=== PATIENT | male | born 1935 | race Caucasian/White ===

== ENCOUNTER 2016-08-23 23:50 | Inpatient (IN) | payer MEDICARE, OTHER ==
--- NOTE | ~2016-08-23 | HP ---
History And Physical [address] [place]. [address] NAME: TOMAS VASQUEZ : 37 STATUS : ADM IN [facility]#: [id number] AGE: 80 ADM/REG DATE : 08/24/16 MR#: [id number] REPORT SERV DATE: 08/24/16 DICTATED BY: BERNARDTOMAS MAXI DATE: 08/24/16 REPORT STATUS : Draft TRANSCRIBED BY: MODL DATE: 08/24/16 DATE OF ADMISSION: 08/23/2016 POINT OF ENTRY: [facility] Emergency Department. PRIMARY SURGEON: Omar Chandler M.D. CHIEF COMPLAINT: Nausea, vomiting, diarrhea, and abdominal distention. HISTORY OF PRESENT ILLNESS: Mr. Vasquez is a 80-year-old gentleman with a history of chronic right inguinal hernia as managed by Dr. Chandler as well as atrial fibrillation and DVT on Xarelto who presented to [facility] Emergency Department earlier on 08/23/2016 for a two- to three-day history of recurrent large volume emesis with associated diarrhea and abdominal bloating and distention. Initial evaluation at [facility] Emergency Department is notable for a CT scan of the abdomen and pelvis that showed right middle lobe and right lower lobe patchy infiltrate concerning for pneumonia as well as air and fluid distended small bowel with a transition point in the large hernia sac concerning for partial incarcerated hernia as well as a partial small bowel obstruction. The patient was transferred to our emergency department for evaluation by General Surgery. When they saw him, they were able to easily reduce the right inguinal hernia; therefore, it was recommended he be admitted to the Hospitalist Service for evaluation of his other medical issues. The patient reports a two- to three-day history of nausea, vomiting, abdominal bloating and distention at [facility] as well as a one-day history of profuse watery diarrhea. He actually denies any abdominal pain. Denies any recent fevers, night sweats, chills, chest pain, or shortness of breath. He does report some dry cough recently. REVIEW OF SYSTEMS: Comprehensive review of systems otherwise negative unless listed in history of present illness. PREVIOUS MEDICAL HISTORY: 1. Chronic right inguinal hernia, managed by Dr. Chandler. 2. Hypertension. 3. Hyperlipidemia. 4. History of DVT. 5. Atrial fibrillation, on Xarelto. 6. Parkinson disease. 7. Recent admission for urinary tract infection and sepsis. 8. Remote history of cauda equina syndrome, status post surgical correction. 9. BPH. 10.History of recurrent pleural effusions, requiring chest tube placement. PAST SURGICAL HISTORY: History And Physical [address] [address] NAME: TOMAS VASQUEZ : 37 STATUS : ADM IN [facility]#: [id number] AGE: 80 ADM/REG DATE : 08/24/16 MR#: [id number] REPORT SERV DATE: 08/24/16 DICTATED BY: TOMAS WAGNER DATE: 08/24/16 REPORT STATUS : Draft TRANSCRIBED BY: MODJanell DATE: 08/24/16 1. Right total knee. 2. Back surgery. 3. Umbical hernia repair. 4. Skin cancer resection. ALLERGIES: MORPHINE AND PRADAXA. HOME MEDICATIONS: 1. Tylenol 600 mg q.4 hours p.r.n. 2. DuoNebs one nebulization q.6 hours. 3. Proventil two puff inhalation q.4 hours p.r.n. 4. Artificial Tears daily each eye. 5. Vitamin C 1000 mg b.i.d. 6. Baclofen 10 mg q.h.s. 7. Stalevo one tablet five times daily. 8. Vitamin D3 2000 units q.h.s. 9. Celexa 20 mg daily. 10.Vitamin B12 2500 mcg q.h.s. 11.Colace 100 mg b.i.d. 12.Proscar 5 mg q.h.s. 13.Melatonin 3 mg q.h.s. 14.Remeron 7.5 mg q.h.s. 15.Protonix 40 mg daily. 16.Pindolol 10 mg b.i.d. 17.MiraLAX one packet daily. 18.Potassium chloride 20 mEq b.i.d. 19.Xarelto 20 mg daily. 20.Requip 3 mg t.i.d. 21.Simvastatin 20 mg q.h.s. 22.Flomax 0.4 mg q.h.s. 23.Zinc Sulfate 220 mg daily. SOCIAL HISTORY: Denies tobacco, alcohol, or illicits. He is currently living at [facility]. FAMILY MEDICAL HISTORY: Remarkable for coronary artery disease in his parents. LABS AND IMAGIN. White count is 9.9, hemoglobin is 12.4, hematocrit is 38.9, and platelet count is 195. 2. Sodium is 140, potassium 4.0, chloride 106, carbon dioxide 27, BUN 32, creatinine 0.99, glucose is 101, calcium is 9.3, protein 7.0, albumin is 3.0, bilirubin is 1.6, ALT is 6, AST is 11, and alkaline phosphatase is 75. 3. Lactic acid is 1.4. 4. Lipase is 56. 5. C. diff is negative. 6. CT scan of the abdomen and pelvis shows right middle lobe and right lower lobe patchy infiltrate concerning for pneumonia as well as air and fluid distended small bowel with History And Physical [address] [address] NAME: TOMAS VASQUEZ : 37 STATUS : ADM IN [facility]#: [id number] AGE: 80 ADM/REG DATE : 08/24/16 MR#: [id number] REPORT SERV DATE: 08/24/16 DICTATED BY: TOMAS WAGNER DATE: 08/24/16 REPORT STATUS : Draft TRANSCRIBED BY: MODJanell DATE: 08/24/16 a transition point within the large hernia sac concerning for partially incarcerated right inguinal hernia as well as partial small bowel obstruction. PHYSICAL EXAMINATION: VITAL SIGNS: Temperature is 97.3 degrees Fahrenheit, pulse is 96, respirations 18, saturating 93% on room air, and blood pressure is 112/64. GENERAL: The patient is awake, alert, in no acute distress, and resting comfortably in bed. He is a chronically ill-appearing, elderly male. HEENT: Atraumatic and normocephalic. Dry mucous membranes with evidence of thrush in his oropharyngeal tissues. Pupils are equal, round, reactive to light and accommodation. Extraocular eye movements are intact. No scleral icterus. NECK: No jugular venous distention. No carotid bruits. CARDIAC: Regular rate and rhythm. No murmurs or gallops. Normal S1 and S2. LUNGS: Does have some right lower lobe inspiratory rhonchi and crackles. ABDOMEN: Soft, nontender, and nondistended with hypoactive bowel sounds throughout. No rebound, guarding, or rigidity. EXTREMITIES: Warm and well perfused. No cyanosis, clubbing, or edema. SKIN: Warm and dry. PSYCH: Affect appropriate. NEURO: Alert and oriented times to person only. Cranial nerves II through XII are grossly intact. Speech is normal. Gait not assessed. ASSESSMENT AND PLAN: Mr. Vasquez is a 80-year-old gentleman who presents with nausea, vomiting, diarrhea, abdominal bloating and distention, found to have evidence of partial small bowel obstruction with concern for a partially incarcerated right inguinal hernia who is now status post reduction of inguinal hernia by Surgery, now being admitted for evidence of dehydration as well as a right-sided pneumonia. PROBLEM LIST: 1. Right middle lobe and right lower lobe pneumonia. 2. Dehydration. 3. Partial small bowel obstruction. 4. Partially incarcerated right inguinal hernia, status post reduction. 5. Thrush. PLAN: 1. Right-sided pneumonia. We will place the patient on Zosyn given recent hospitalization as well as residence in a nursing facility. We will follow up blood cultures, try to obtain sputum cultures as well as urinary antigens. Follow up repeat chest x-ray. 2. Partial small bowel obstruction. Nothing by mouth. Surgical consultation for management. 3. Partially incarcerated right inguinal hernia, status post reduction by surgery per Surgery. 4. Dehydration. IV fluids. 5. Thrush. Nystatin swish and swallow. 6. DVT prophylaxis. The patient is already on Xarelto. 7. Code status. The patient wished to be DNR, this is confirmed with at bedside. History And Physical [address] [address] NAME: TOMAS VASQUEZ : 37 STATUS : ADM IN [facility]#: [id number] AGE: 80 ADM/REG DATE : 08/24/16 MR#: [id number] REPORT SERV DATE: 08/24/16 DICTATED BY: TOMAS WAGNER DATE: 08/24/16 REPORT STATUS : Draft TRANSCRIBED BY: KRIS DATE: 08/24/16 GINA/KRIS Tomas Wagner MD / [id number] CC: Daphne Rand M.D.
--- NOTE | ~2016-08-23 | EHP ---
ER History and Physical [address] [address] NAME: TOMAS VASQUEZ : 37 STATUS : ADM IN [facility]#: [id number] AGE: 80 ADM/REG DATE : 08/24/16 MR#: [id number] REPORT SERV DATE: 08/24/16 DICTATED BY: FELY SWEENEY DATE: 08/24/16 REPORT STATUS : Draft TRANSCRIBED BY: MODL DATE: 08/24/16 ADDENDUM: This note is to explain the delay in the emergency room physician seeing the patient. Mr. Vasquez was sent from [facility] Emergency Room with my understanding that Dr. Go or one of his associates would be coming to the emergency room to receive the patient as he was being sent over for an incarcerated hernia, so Mr. Vasquez was placed into a room as we awaited the surgical residents arrival. After the surgery resident saw the patient, he brought me the chart and said he was done with the patient and that they were not going to need to be admitted by Surgery. I asked that he speak with Dr. Go because my understanding was that the patient would then be discharge by surgery, but when I spoke with Dr. Go, Dr. Go did not get the same impression in regard to the patient. He thought he was consulting on the patient here in the emergency room per our conversation and that we would decide final disposition. So, after the patient had been in the emergency department for a couple of hours. I did go and see Mr. Vasquez, he was in a stable condition. You can look at the chart for his history. He was admitted to the hospitalist for partial small bowel obstruction and pneumonia by CAT scan. CMR/MODL Fely Sweeney M.D. / [id number] CC: Ashwin Carver M.D.
--- NOTE | ~2016-08-23 | CN ---
Consultation Report [facility] [address] [place]. [address] NAME: TOMAS VASQUEZ : 37 STATUS : ADM IN PAT#: [id number] AGE: 80 ADM/REG DATE : 08/24/16 MR#: [id number] REPORT SERV DATE: 08/29/16 DICTATED BY: LUIS ARMANDO ROBERSON DATE: 08/29/16 REPORT STATUS : Draft TRANSCRIBED BY: MODJanell DATE: 08/29/16 CONSULTATION DATE OF CONSULTATION: 08/29/2016 REFERRING PHYSICIAN: Romaine Lozano M.D. HISTORY: Mr. Vasquez is a 80-year-old white male, who is well known to me. He has been hospitalized here at [facility], with primarily secondary to fever and encephalopathy associated with pneumonia. I am asked to see him for advice on how to help with bladder management. He has a long history of irritative and obstructive type of voiding complaints. He has been managed chronically on finasteride as well as Flomax and up until somewhat recently he had been in the past. He has also been on various types of anti-spasm bladder agents including Myrbetriq. He had a fall on 2015, with resultant rib fractures, and a pleural effusion requiring thoracoscopy. Since that time, he has mostly been in some sort of rehab setting. He has had urinary retention since then as well which has been managed for the most part with a Camarillo catheter. Apparently, the Cmaarillo was removed either before he arrived here or since his admission. He has voided some, but according to the nurses his residuals have measured anywhere from 250 to a 1000 mL. I instructed the nurses to reinsert a Camarillo catheter this morning which has been done successfully. He has no complaints at this point. Again, since his admission here he has been diagnosed with pneumonia. It has been treated appropriately with antibiotics and at this time, he is on Zosyn. His mental status changes have essentially resolved and at this point, he is afebrile. His medical team is planning for hospital discharge soon. PAST MEDICAL HISTORY: Atrial fibrillation, hypertension, Parkinson's disease, cauda equina syndrome, with history of skin cancers, and DVT. PAST SURGICAL HISTORY: Right knee replacement, back surgery, umbilical hernia surgery, recent thoracentesis, and thoracoscopy. SOCIAL HISTORY: He is . He has not smoked since the . He does not drink. He is retired. His is his caregiver. MEDICATIONS: medications at this time include tamsulosin and finasteride. ALLERGIES: PRADAXA AND MORPHINE. PHYSICAL EXAMINATION: GENERAL: He is a very pleasant, white male, who is in no distress at this time. He is alert, oriented, and conversive. VITAL SIGNS: He is afebrile. His vital signs are stable. HEENT: Pupils are equal, round, and reactive. Extraocular movements intact. NECK: Supple. No adenopathy. Consultation Report [facility] [address] [place]. [address] NAME: TOMAS VASQUEZ : 37 STATUS : ADM IN [facility]#: [id number] AGE: 80 ADM/REG DATE : 08/24/16 MR#: [id number] REPORT SERV DATE: 08/29/16 DICTATED BY: LUIS ARMANDO ROBERSON DATE: 08/29/16 REPORT STATUS : Draft TRANSCRIBED BY: KRIS DATE: 08/29/16 LUNGS: Clear. ABDOMEN: Soft, nondistended, and nontender. It is obese. GENITOURINARY: His bladder is not palpable. His penis is without lesion. There was some mild ventral meatal erosion. There is a Camarillo catheter in place draining grossly clear urine. Testes are descended bilaterally and are slightly atrophic. He has a moderate-to- large right inguinal hernia which is easily reducible. Prostate gland was not examined. EXTREMITIES: No cyanosis. NEURO: He has a repetitive tic like movements. LABORATORY DATA: Creatinine 0.6, white cell count 3.8. Blood cultures are negative. The urine culture from 08/24/2016 grew out 75,[address] of the abdomen and pelvis upon admission showed a normal tract. IMPRESSION: 1. Urinary retention, now with Camarillo catheter. 2. Long-standing voiding dysfunction with some neurogenic component. 3. History of significant irritative voiding symptoms, although, not on any current medication for this. 4. Parkinson's disease. 5. Resolving pneumonia. 6. Benign prostatic hyperplasia, chronically on tamsulosin and finasteride. 7. Reducible right inguinal hernia. 8. History of urinary tract infections. 9. Status post fall with injuries and subsequent debility on 05/2016-still recovering. RECOMMENDATIONS: For now I would simply leave his Camarillo catheter in place. Continue him on Flomax and Proscar. Hopefully, he will be deemed suitable for a voiding trial. At some point in the near term assuming he continues to recover clinically, and feeling stronger, and more mobile etc. I will certainly plan to follow up with him as an outpatient in the office and will discuss all the above with his . It would be okay from my standpoint to discharged him home with a Camarillo catheter whenever you are ready. Thank you for the consult. RAFAELA/KRIS Luis Armando Roberson M.D. / [id number] CC: Romaine Lozano M.D. Consultation Report [address] [place]. [address] NAME: TOMAS VASQUEZ : 37 STATUS : ADM IN PAT#: [id number] AGE: 80 ADM/REG DATE : 08/24/16 MR#: [id number] REPORT SERV DATE: 08/29/16 DICTATED BY: LUIS ARMANDO ROBERSON DATE: 08/29/16 REPORT STATUS : Draft TRANSCRIBED BY: KRIS DATE: 08/29/16 Ashwin Carver M.D.
--- NOTE | ~2016-08-23 | CN ---
Consultation Report [facility] [address] [place]. [address] NAME: TOMAS DOE : 37 STATUS : ADM IN PAT#: [id number] AGE: 80 ADM/REG DATE : 08/24/16 MR#: [id number] REPORT SERV DATE: 08/24/16 DICTATED BY: TIM GO DATE: 08/24/16 REPORT STATUS : Draft TRANSCRIBED BY: MODL DATE: 08/24/16 GENERAL SURGERY CONSULTATION AND H AND P DATE OF CONSULTATION: 08/24/2016 CHIEF COMPLAINT: Nausea, vomiting, diarrhea. HPI: A 80-year-old male, well-known to the [facility] surgeons for chronic reducible right inguinal hernia. The patient now presents with a two-day history of nausea and vomiting in one-day history of diarrhea. No bright red blood per rectum. No melena. No blood or coffee ground emesis. The patient denies any fever, chills, shortness of breath, or chest pain. The patient is somewhat altered though and he is sundowning. So, history was taken from the chart and from his . The patient had just recently finished an antibiotic course of Zosyn through a PICC line on the 08/21/2016 for his sepsis in GI. REVIEW OF SYSTEMS: A 12-systems were reviewed and negative except as mentioned in the HPI. ALLERGIES: PRADAXA, MORPHINE. PAST MEDICAL HISTORY: AFib, hypertension, Parkinson disease, enlarged prostate. He has cauda equina with previous L5-S1 fusion surgery; chronic right inguinal hernia, easily reducible; history of skin cancers, removed; DVT prior to fractures and right knee replacement. PAST SURGICAL HISTORY: Right knee replacement, back surgery for cauda equina syndrome 10 years ago, several skin cancers removed, umbilical hernia surgery, thoracentesis, right thoracoscopy with complete decortication, and talc pleurodesis. SOCIAL HISTORY: Previous smoker, quit in 1979, a [id number]. No alcohol. Retired. Lives in in [place], [place] with his . FAMILY HISTORY: Coronary artery disease, diabetes, hypertension. MEDICATIONS: Acetaminophen, DuoNeb, Proventil or albuterol, Artificial Tears, vitamins C, baclofen, carbidopa, L-dopa, entacapone also known as Stalevo, vitamin D3, Celexa, B12, Colace, finasteride, melatonin, Remeron, Protonix, pindolol, Zosyn, MiraLAX, potassium, Xarelto, Requip, Zocor, Flomax, zinc. PHYSICAL EXAMINATION: VITAL SIGNS: Blood pressure 112/64, pulse is 96, temperature 97.3, respiratory rate 18, and sats 90% on 2 L nasal cannula. GENERAL: This is a well-developed, well-nourished, in no acute distress white male, who does appears sickly at this time. Consultation Report [facility] [address] [place]. [address] NAME: TOMAS DOE : 37 STATUS : ADM IN [facility]#: [id number] AGE: 80 ADM/REG DATE : 08/24/16 MR#: [id number] REPORT SERV DATE: 08/24/16 DICTATED BY: TIM GO DATE: 08/24/16 REPORT STATUS : Draft TRANSCRIBED BY: MODJanell DATE: 08/24/16 HEENT: Normocephalic, atraumatic. PERRL. EOMI. Mucous membranes moist, but there was appearance of thrush on the inner right-sided buccal mucosa as well as on the tongue, thrush like pattern. Sclerae nonicteric. NECK: No lymphadenopathy. Trachea midline. CARDIOVASCULAR: Regular rate and rhythm. LUNGS: Clear auscultation bilaterally. ABDOMEN: Soft, nondistended, nontender. Bowel sounds present in general, right inguinal hernia was easily reducible, almost spontaneously reduced once the patient was placed in steep Trendelenburg. MUSCULOSKELETAL: Movies all extremities well. There is some restricted motion of his hands secondary to his Parkinson disease. EXTREMITIES: No clubbing, cyanosis, or edema, 2+ pulses. NEURO: Cranial nerves 2 through 12 are intact. AAO x1. The patient is sundowning it seems. LABS: White blood cell 9.9, hematocrit 38.9, platelets 195. Sodium 140, potassium 4.0, chloride 106, bicarb 27, BUN 32, creatinine 0.9, glucose 101, calcium 9.3, albumin 2.0. AST 6, ALT 11, alk phos 75, T bili 1.6, lipase 56. Also, CT scan showed dilated small bowel in the right inguinal hernia and a right lower lung pneumonia. ASSESSMENT AND PLAN: This is a 80-year-old male, who has a chronic easily reducible right inguinal hernia. 1. His hernia is very unlikely to be the cause of small bowel obstruction as it is easily reduces and soft in nature and is longstanding for approximately 7+ years and has been followed by Dr. Chandler in his office for last three years. 2. Recommend the patient to be admitted to the hospitalist for further workup. We did note for this acute onset of nausea, vomiting, and diarrhea. DICTATED BY: MD SIMONE Brown/KRIS Tim Go MD / [id number] CC: Ashwin Carver M.D.
--- NOTE | ~2016-08-23 | DS ---
Discharge Summary [facility] [address] [place]. [address] NAME: TOMAS DOE : 36 STATUS : DIS IN PAT#: [id number] AGE: 80 ADM/REG DATE : 08/24/16 MR#: [id number] REPORT SERV DATE: 08/31/16 DICTATED BY: PRINCE HIDALGO DATE: 08/30/16 REPORT STATUS : Draft TRANSCRIBED BY: MODL DATE: 08/30/16 ADMISSION DATE: 08/24/2016 DISCHARGE DATE: 08/30/2016 CONSULTING PHYSICIAN: Outpatient surgeon, Dr. Chandler. HISTORY OF PRESENT ILLNESS: This is a 80-year-old male who is going to be discharged with a final diagnoses of: 1. Right sided pneumonia. 2. Chronic right inguinal hernia. 3. Status post encephalopathy with history of dementia. 4. Pancytopenia, improved. 5. Atrial fibrillation. 6. History of deep venous thrombosis. 7. Hypertension. 8. Low folate. 9. Urinary retention. 10.Parkinson's. 11.Benign prostatic hypertrophy. 12.Thrush. DIAGNOSTIC EXAM: CAT scan of the abdomen and pelvis showing patchy infiltrates, right middle and right lower lobe suspicious for right-sided acute pneumonia; subsegmental atelectasis posterior left lung base; air fluid distended small bowel to the level of the large hernia sac, right lower quadrant where there is a transition zone suggesting partial incarceration of small bowel within the right hernia sac producing a low-grade partial small bowel obstruction with small bowel dilated up to 4.4 cm in diameter up to the margin of the hernia sac; scattered air-fluid levels throughout the dilated small bowel; scattered benign cyst within the liver; stable postsurgical changes from fusion L5-S1 beam-hardening artifact, lower chest, upper abdomen from the patient scan over the lower chest and upper abdomen. Chest x-ray, cardiomegaly with developing small right greater than left pleural effusion and bibasilar atelectasis or consolidation. Swallowing study, no witnessed laryngeal penetration or tracheal aspiration, mild pooling to the vallecula prior to swallow, mild oral residue with cracker consistency. Repeat chest x-ray showing increasing atelectasis or infiltrate in the right upper and lower lobes, small bilateral effusion. Abdominal x-ray, continued numerous gas-filled loops of large and small intestine. There is mild decrease in the amount of gas compared to the chief business officer view from CT of 08/23/2016. HOSPITAL COURSE: Please refer to the H and P done by Dr. Prater dated on 08/24/2016. Briefly, this is a 80-year-old male with a history of chronic right inguinal hernia, being followed conservatively by Dr. Chandler for several years now, atrial fibrillation, deep venous thrombosis, on Xarelto, comes in with a two- to three-day history of vomiting, diarrhea, abdominal bloating, and distention. The patient went to [facility]. CAT scan was done, which shows the above findings. The patient was then transferred here for evaluation of General Surgery. The patient was seen by surgeon and believed that the hernia is easily reducible and unlikely to cause the small-bowel obstruction. The patient was then referred Discharge [address] [address] NAME: TOMAS DOE : 36 STATUS : DIS IN PAT#: [id number] AGE: 80 ADM/REG DATE : 08/24/16 MR#: [id number] REPORT SERV DATE: 08/31/16 DICTATED BY: PRINCE HIDALGO DATE: 08/30/16 REPORT STATUS : Draft TRANSCRIBED BY: KRIS DATE: 08/30/16 to the hospitalist for admission. The patient is admitted by Dr. Prater and was treated for the right-sided pneumonia. Unfortunately, we were not able to get any organisms back, but the patient clinically improved. While he was here though, the patient's Camarillo was discontinued and the patient started retaining urine again with doctor, Dr. Montero, who recommended Camarillo placement and to leave it in until he follows up the patient on an outpatient basis. The patient initially has right-sided lower abdominal pain which improved day by day and the repeat abdominal x-ray shows improvement. The patient is able to eat without nausea and vomiting. We did a swallow study and it shows that the patient can tolerate eating. Meanwhile, his pneumonia improved. He is saturating at 92% on discharge with decreased cough. He was also found to have some pancytopenia which also improved as the patient clinically improved. The encephalopathy improved as well. He was found to have a low folate which we started some folic acid. Presently, the patient is ready for discharge. The is eager to send the patient back to the rehab facility, so he can start moving better. This was explained at length to the . The patient will be on the following medications. Eliquis 5 mg twice a day, artificial tears as needed, Dulcolax 10 mg per rectum daily, Colace 100 mg twice a day, Stalevo 200 mg five times a day, vitamin D 2000 units a day, Proscar 5 mg at bedtime, melatonin 3 mg as needed, Remeron 7.5 mg at bedtime, Celexa 20 mg a day, Protonix 40 mg at breakfast, pindolol 10 mg twice a day, Requip 3 mg three times a day, Zocor 20 mg at bedtime, Flomax 0.4 mg at bedtime, vitamin C 1000 mg twice a day, MiraLAX as needed, vitamin B12 of 2500 mcg sublingual at bedtime, Proventil, ipratropium every six hours, Tylenol p.r.n., and he will be on Augmentin 825 mg b.i.d. for three more days. The patient will follow up with the SNF doctor, then follow up with Dr. Carver after rehab discharge. Followup with Dr. Montero in two to four weeks and Dr. Chandler as scheduled. This has been explained to the patient at length. TIME SPENT: 35 minutes. BORA/KRIS Prince Hidalgo M.D. / [id number] CC: Daphne Wolf M.D.
[~2016-08-23 23:50] MED LIST: ACET500CAP PO; ASAB PO; CELEXA20 PO; COMTAN PO; CONSTULOSE PO; COUMADIN7.5 MG PO; COZAAR100 MG PO; DSS PO; DUONEB INH; FLEX PO; FLEXERIL5 MG PO; FLOMAX4 PO; HALF81 PO; HEMOCYTET PO; KDUR20 PO; LEVAQUIN750 MG PO; LIOR10 PO; MAX D3; MELA3 PO; MELATONIN5 M1 PO; MIRALAX POWDER1 PKT PO; NEXIUM40 PO; PARCOPA PO; PROAIR HFA INH; PROSCAR5 PO; PROTONIX PO; PROVHFA INH; REM15 PO; REQUIP3 PO; REQUIP4 MG PO; SIN25 PO; SIN25-250 PO; STALEVO 200 PO; STALEVO PO; SYSTANE OP; SYSTANE ULTR OPH; T PO; TEARS PURE OPH; ULTRAM50 PO; V2 PO; V5 PO; VISKEN10 PO; VITAMIN B-122500 MCG SL; VITAMIN D1000 UNI1 PO; VITAMIN D2000 UNIT PO; VITAMIN D31000 UNIT PO; VITC500 PO; XARELTO20 MG PO; ZINC220C PO; ZOCOR20 PO; ZOFRAN ODT4 MG PO; ZOSYN375 IV; [UNRECOGNIZED DRUG - CODE] OR; [UNRECOGNIZED DRUG - OTHER]
[2016-08-24 04:29] LABS: ASCORBIC ACID (UR NOT ORDER) NEG (NEG); BILIRUBIN, URINE NEGATIVE (NEG); ER URINALYSIS TAT 0 Hrs 00 Mins; KETONE, URINE 20 MG/DL (NEG); LEUKOCYTE ESTERASE(NOT OR MOD (NEG); NITRITE (URINE) NEG (NEG); WBC (NOT ORDERED) (RFLEX) 170 (0-5)
[2016-08-25 07:15] LABS: CALCIUM, SERUM 8.4 MG/DL (8.5-10.4); CHLORIDE, SERUM 108 MMOL/L (96-112); CO2 (CARBON DIOXIDE) 26 MMOL/L (24-34); CREATININE 0.71 MG/DL (0.70-1.30); GFR AFRICAN AMERICAN 103 ML/MIN (>=60); GFR NON AFRICAN AMERICAN 89 ML/MIN (>=60); GLUCOSE, SERUM 100 MG/DL (60-99); SODIUM, SERUM 143 MMOL/L (135-148)
[2016-08-25 07:20] LABS: BUN (BLOOD UREA NITROGEN) 23 MG/DL (6-23); POTASSIUM, SERUM 3.1 MMOL/L (3.5-5.3)
[2016-08-25 07:44] LABS: BASOPHILS 0.2 %; BASOPHILS ABSOLUTE 0.01 10/3/uL (0.0-0.16); EOSINOPHILS 1.3 %; EOSINOPHILS ABSOLUTE 0.08 10/3/uL (0.0-0.53); HEMOGLOBIN 10.1 g/dL (13.6-17.8); IMMATURE GRANULOCYTES 0.2 %; IMMATURE GRANULOCYTES ABSOLUTE 0.01 10/3/uL (0.0-0.11); LYMPHOCYTES 14.1 %; LYMPHOCYTES ABSOLUTE 0.87 10/3/uL (0.67-4.30); MEAN CORPUS HGB CONC 31.6 g/dL (32.0-36.0); MEAN CORPUSCULAR HEMOGLOB 28.9 pg (26.0-34.0); MEAN CORPUSCULAR VOLUME 91.7 fL (80-100); MEAN PLATELET VOLUME 10.2 fL (9.2-13.0); MONOCYTES 5.5 %; MONOCYTES ABSOLUTE 0.34 10/3/uL (0.21-1.20); NEUTROPHILS 78.7 %; NEUTROPHILS ABSOLUTE 4.86 10/3/uL (2.02-8.40); RBC DISTRIBUTION WIDTH 18.2 % (12.0-16.0); RED CELL COUNT 3.49 10/6/uL (4.7-6.1); WHITE BLOOD CELLS 6.2 10/3/uL (4.5-10.5)
[2016-08-25 07:45] LABS: PLATELET COUNT 123 10/3/uL (150-400)
[2016-08-25 07:46] LABS: MANUAL DIFF NO %
[2016-08-26 07:07] LABS: INTERNATIONAL NORMAL RATI 2.1 UNITS (-); PROTIME (NOT ORD) 23.3 SEC (12.0-14.5)
[2016-08-26 07:09] LABS: BASOPHILS 0 %; BUN (BLOOD UREA NITROGEN) 14 MG/DL (6-23); CALCIUM, SERUM 8.7 MG/DL (8.5-10.4); CHLORIDE, SERUM 107 MMOL/L (96-112); CO2 (CARBON DIOXIDE) 26 MMOL/L (24-34); CREATININE 0.61 MG/DL (0.70-1.30); EOSINOPHILS 5.8 %; GFR AFRICAN AMERICAN 110 ML/MIN (>=60); GFR NON AFRICAN AMERICAN 95 ML/MIN (>=60); GLUCOSE, SERUM 96 MG/DL (60-99); HEMATOCRIT 30.9 % (40.0-51.0); IMMATURE GRANULOCYTES 0.3 %; IMMATURE GRANULOCYTES ABSOLUTE 0.01 10/3/uL (0.0-0.11); LYMPHOCYTES ABSOLUTE 0.96 10/3/uL (0.67-4.30); MEAN CORPUS HGB CONC 32.4 g/dL (32.0-36.0); MEAN CORPUSCULAR HEMOGLOB 29.2 pg (26.0-34.0); MEAN CORPUSCULAR VOLUME 90.4 fL (80-100); MEAN PLATELET VOLUME 10.1 fL (9.2-13.0); MONOCYTES 8.7 %; NEUTROPHILS 57.2 %; NEUTROPHILS ABSOLUTE 1.96 10/3/uL (2.02-8.40); PLATELET COUNT 105 10/3/uL (150-400); POTASSIUM, SERUM 3.3 MMOL/L (3.5-5.3); RBC DISTRIBUTION WIDTH 17.6 % (12.0-16.0); RED CELL COUNT 3.42 10/6/uL (4.7-6.1); SODIUM, SERUM 143 MMOL/L (135-148)
[2016-08-26 08:03] LABS: MANUAL DIFF NO %; WHITE BLOOD CELLS 3.4 10/3/uL (4.5-10.5)
[2016-08-27 06:41] LABS: BASOPHILS 0.5 %; BASOPHILS ABSOLUTE 0.02 10/3/uL (0.0-0.16); EOSINOPHILS 5.3 %; EOSINOPHILS ABSOLUTE 0.21 10/3/uL (0.0-0.53); HEMATOCRIT 33.4 % (40.0-51.0); HEMOGLOBIN 10.9 g/dL (13.6-17.8); IMMATURE GRANULOCYTES 0.3 %; IMMATURE GRANULOCYTES ABSOLUTE 0.01 10/3/uL (0.0-0.11); LYMPHOCYTES 32.5 %; LYMPHOCYTES ABSOLUTE 1.28 10/3/uL (0.67-4.30); MEAN CORPUS HGB CONC 32.6 g/dL (32.0-36.0); MEAN CORPUSCULAR HEMOGLOB 29.2 pg (26.0-34.0); MEAN CORPUSCULAR VOLUME 89.5 fL (80-100); MEAN PLATELET VOLUME 9.7 fL (9.2-13.0); MONOCYTES 7.4 %; MONOCYTES ABSOLUTE 0.29 10/3/uL (0.21-1.20); NEUTROPHILS ABSOLUTE 2.13 10/3/uL (2.02-8.40); RBC DISTRIBUTION WIDTH 17.2 % (12.0-16.0); RED CELL COUNT 3.73 10/6/uL (4.7-6.1); RETICULOCYTE COUNT 1.8 % (0.5-2.5); RETICULOCYTE COUNT ABSOLUTE 68.6 10/3/uL (20.2-119.8); WHITE BLOOD CELLS 3.9 10/3/uL (4.5-10.5)
[2016-08-27 06:44] LABS: MANUAL DIFF NO %; PLATELET COUNT 153 10/3/uL (150-400)
[2016-08-27 07:06] LABS: % IRON SAT 19 % (20-50); BUN (BLOOD UREA NITROGEN) 11 MG/DL (6-23); CHLORIDE, SERUM 109 MMOL/L (96-112); CO2 (CARBON DIOXIDE) 28 MMOL/L (24-34); CREATININE 0.59 MG/DL (0.70-1.30); FERRITIN 422 NG/ML (26-388); FOLATE 4.9 NG/ML (>5.2); GFR AFRICAN AMERICAN 112 ML/MIN (>=60); GFR NON AFRICAN AMERICAN 96 ML/MIN (>=60); GLUCOSE, SERUM 95 MG/DL (60-99); IRON BINDING CAPACITY 162 MCG/DL (250-450); IRON, SERUM 31 MCG/DL (35-150); POTASSIUM, SERUM 3.7 MMOL/L (3.5-5.3); SODIUM, SERUM 144 MMOL/L (135-148)
[2016-08-28 05:36] LABS: BASOPHILS 0.3 %; BASOPHILS ABSOLUTE 0.01 10/3/uL (0.0-0.16); EOSINOPHILS 5.3 %; HEMOGLOBIN 10.6 g/dL (13.6-17.8); LYMPHOCYTES 33.9 %; LYMPHOCYTES ABSOLUTE 1.29 10/3/uL (0.67-4.30); MEAN CORPUS HGB CONC 33.1 g/dL (32.0-36.0); MEAN CORPUSCULAR HEMOGLOB 29.6 pg (26.0-34.0); MEAN CORPUSCULAR VOLUME 89.4 fL (80-100); MEAN PLATELET VOLUME 9.5 fL (9.2-13.0); MONOCYTES 6.6 %; MONOCYTES ABSOLUTE 0.25 10/3/uL (0.21-1.20); NEUTROPHILS 53.9 %; NEUTROPHILS ABSOLUTE 2.05 10/3/uL (2.02-8.40); PLATELET COUNT 151 10/3/uL (150-400); RBC DISTRIBUTION WIDTH 17.1 % (12.0-16.0); RED CELL COUNT 3.58 10/6/uL (4.7-6.1); WHITE BLOOD CELLS 3.8 10/3/uL (4.5-10.5)
[2016-08-28 05:38] LABS: MANUAL DIFF NO %
[2016-08-28 05:52] LABS: BUN (BLOOD UREA NITROGEN) 10 MG/DL (6-23); CALCIUM, SERUM 8.9 MG/DL (8.5-10.4); CHLORIDE, SERUM 109 MMOL/L (96-112); CO2 (CARBON DIOXIDE) 24 MMOL/L (24-34); CREATININE 0.58 MG/DL (0.70-1.30); GFR AFRICAN AMERICAN 112 ML/MIN (>=60); GFR NON AFRICAN AMERICAN 97 ML/MIN (>=60); GLUCOSE, SERUM 100 MG/DL (60-99); POTASSIUM, SERUM 3.3 MMOL/L (3.5-5.3); SODIUM, SERUM 143 MMOL/L (135-148)
[2016-08-29 05:48] LABS: BUN (BLOOD UREA NITROGEN) 9 MG/DL (6-23); CALCIUM, SERUM 8.6 MG/DL (8.5-10.4); CHLORIDE, SERUM 109 MMOL/L (96-112); CO2 (CARBON DIOXIDE) 25 MMOL/L (24-34); CREATININE 0.66 MG/DL (0.70-1.30); GFR AFRICAN AMERICAN 107 ML/MIN (>=60); GFR NON AFRICAN AMERICAN 92 ML/MIN (>=60); GLUCOSE, SERUM 89 MG/DL (60-99); POTASSIUM, SERUM 3.5 MMOL/L (3.5-5.3); SODIUM, SERUM 143 MMOL/L (135-148)
[2016-08-30 05:02] LABS: BASOPHILS 0.2 %; BASOPHILS ABSOLUTE 0.01 10/3/uL (0.0-0.16); EOSINOPHILS 6.6 %; HEMATOCRIT 33.7 % (40.0-51.0); HEMOGLOBIN 10.9 g/dL (13.6-17.8); IMMATURE GRANULOCYTES 0.4 %; IMMATURE GRANULOCYTES ABSOLUTE 0.02 10/3/uL (0.0-0.11); LYMPHOCYTES ABSOLUTE 1.46 10/3/uL (0.67-4.30); MEAN CORPUS HGB CONC 32.3 g/dL (32.0-36.0); MEAN CORPUSCULAR HEMOGLOB 28.7 pg (26.0-34.0); MEAN CORPUSCULAR VOLUME 88.7 fL (80-100); MEAN PLATELET VOLUME 9.5 fL (9.2-13.0); MONOCYTES 7.5 %; MONOCYTES ABSOLUTE 0.34 10/3/uL (0.21-1.20); NEUTROPHILS 53.3 %; NEUTROPHILS ABSOLUTE 2.43 10/3/uL (2.02-8.40); PLATELET COUNT 173 10/3/uL (150-400); RBC DISTRIBUTION WIDTH 17.6 % (12.0-16.0); WHITE BLOOD CELLS 4.6 10/3/uL (4.5-10.5)
[2016-08-30 05:05] LABS: MANUAL DIFF NO %
[2016-08-30 05:17] LABS: BUN (BLOOD UREA NITROGEN) 6 MG/DL (6-23); CHLORIDE, SERUM 108 MMOL/L (96-112); CO2 (CARBON DIOXIDE) 28 MMOL/L (24-34); CREATININE 0.67 MG/DL (0.70-1.30); GFR AFRICAN AMERICAN 106 ML/MIN (>=60); GFR NON AFRICAN AMERICAN 91 ML/MIN (>=60); GLUCOSE, SERUM 83 MG/DL (60-99); POTASSIUM, SERUM 3.5 MMOL/L (3.5-5.3); SODIUM, SERUM 144 MMOL/L (135-148)
[2017-01-11] MEDS ORDERED: STALEVO 200 PO (17:16)
[2017-01-11] MEDS ORDERED: ELIQUIS 5 MG TAB5 MG PO (17:16)
[2017-01-11] MEDS ORDERED: PROSCAR5 PO (17:17)
[2017-01-11] MEDS ORDERED: LIOR10 PO (17:17)
[2017-01-11] MEDS ORDERED: AUG875 PO (17:18)
[2017-01-11] MEDS ORDERED: CELEXA20 PO (17:19)
[2017-01-11] MEDS ORDERED: ZOCOR20 PO (17:19)
[2017-01-11] MEDS ORDERED: REM15 PO (17:20)
[2017-01-11] MEDS ORDERED: MIRALAX POWDER1 PKT PO (17:21)
[2017-01-11] MEDS ORDERED: REQUIP4 MG PO (17:21)
[2017-01-11] MEDS ORDERED: PROAIR HFA INH (17:21)
[2017-01-11] MEDS ORDERED: MELATONIN5 M1 PO (17:22)
[2017-01-11] MEDS ORDERED: VITAMIN B-12 PO (17:23)
[2017-01-11] MEDS ORDERED: VITAMIN D2000 UNIT PO (17:23)
[2017-01-11] MEDS ORDERED: ADVIL PO (17:24)
[2017-01-11] MEDS ORDERED: T PO (17:24)
[2017-01-11] MEDS ORDERED: SYSTANE ULTR OPH (17:25)
== END 2016-08-30 14:39 | DRG 193 ==
LOC: ER 23:50 → 5SO 08-24 02:22
PROVIDERS: Internal Medicine; Nurse Practitioner; Nurse Practitioner Family
DX: J18.9 Pneumonia, unspecified organism (principal); G93.41 Metabolic encephalopathy; D61.818 Other pancytopenia; I48.2 Chronic atrial fibrillation; G20 Parkinson's disease; K40.30 Unilateral inguinal hernia, with obstruction, without gangrene, not specified as recurrent; N39.0 Urinary tract infection, site not specified; E86.0 Dehydration; B37.9 Candidiasis, unspecified; I10 Essential (primary) hypertension; J98.11 Atelectasis; Z66 Do not resuscitate; E78.5 Hyperlipidemia, unspecified; E87.6 Hypokalemia; R33.9 Retention of urine, unspecified; N40.0 Benign prostatic hyperplasia without lower urinary tract symptoms; Z86.718 Personal history of other venous thrombosis and embolism; Z79.899 Other long term (current) drug therapy; Z79.01 Long term (current) use of anticoagulants; Z87.440 Personal history of urinary (tract) infections; Z96.651 Presence of right artificial knee joint; Z82.49 Family history of ischemic heart disease and other diseases of the circulatory system; Z88.5 Allergy status to narcotic agent; Z88.8 Allergy status to other drugs, medicaments and biological substances; Z91.81 History of falling; Z87.891 Personal history of nicotine dependence
CPT/HCPCS: 71020; 74020; 74176; 74230; 80048; 80053; 81001; 82728; 82746; 83540; 83550; 83605; 83690; 83735; 84132; 84443; 85025; 85045; 85610; 87040; 87045; 87046; 87046-59; 87086; 87493; 87493-59; 87899; 87899-59; 92611-GN; 93005; 94640; 96361; 96374; 97110-GP; 97163-GP; 97530-GP; 99285; A9270-GY; G8978-CM-GP; G8979-CL-GP; G8996-CJ-GN; G8997-CJ-GN; G8998-CJ-GN; J2405; J2543; J3370

== ENCOUNTER 2016-11-15 11:42 | Inpatient (IN) | payer MEDICARE, OTHER ==
--- NOTE | ~2016-11-15 | DS ---
Discharge Summary [facility] [address] [facility] [place]. [address] NAME: TOMAS DOE : 36 STATUS : DIS IN PAT#: [id number] AGE: 80 ADM/REG DATE : 11/15/16 MR#: [id number] REPORT SERV DATE: 11/23/16 DICTATED BY: HUGO SANCHEZ DATE: 11/22/16 REPORT STATUS : Draft TRANSCRIBED BY: MODL DATE: 11/22/16 ADMISSION DATE: 11/15/2016 DISCHARGE DATE: 11/21/2016 REASON FOR ADMISSION: This is a 80-year-old male who came in with weakness, increased urinary frequency and urgency, status post fall with left-sided pain. DISCHARGE DIAGNOSES: 1. Urinary tract infection with cultures positive for Enterobacter and Pseudomonas. 2. Acute left rib fracture. 3. Parkinson disease. 4. Chronic atrial fibrillation. 5. Right inguinal hernia. 6. Heart pause. HOSPITAL COURSE: Please see admission H and P from Keira Borges on 11/15/2016 and interim discharge summary from Romaine Morton on 11/18/2016 for full details on admission and hospital stay. 1. UTI. The patient was found to have Enterobacter and Pseudomonas, positive urine. He had been started on IV meropenem as that is the only antibiotic for Pseudomonas, it was sensitive to and Enterobacter was also sensitive to it. The patient had received three days of IV antibiotic here at the hospital, so PICC line was placed and he is to finish his 7 days of treatment at [facility] facility via PICC line and IV meropenem. 2. Acute left rib fractures. The patient had a fall at home and has a history of recurrent falls. His imaging here at the hospital, he had CT of the abdomen and pelvis which showed acute mildly displaced posterior left 11th and nondisplaced posterolateral 12th rib fractures with no evidence of significant intramuscular evidence of retroperitoneal or intraperitoneal hemorrhage. No hemothorax seen. It is important to note that the patient had a history of previous rib fractures and previous hemothorax associated with rib fractures and being on anticoagulation. The patient has recurrent falls, bad balance, and there was discussion with the patient and about continuing on his Eliquis versus discontinuing as perhaps his risk for bleeding was reaching a point where it is worth consideration, but after conversation with Dr. Trejo, his multicraft operator, who saw him here at the hospital, it was decided to continue Eliquis. They understood the risk of continuing. Additionally, the patient had a 3.9-second pause while here at the hospital. While in atrial fibrillation rhythm, Dr. Trejo saw this, had no plans for pacemaker intervention, just plan to watch it, follow up outpatient. DISCHARGE CONDITION: Stable. DISCHARGE MEDICATIONS: 1. Stalevo 50/200/200 mg one tablet every three hours. 2. Requip 3 mg p.o. t.i.d. 3. Protonix 40 mg p.o. daily. 4. Eliquis 5 mg p.o. b.i.d. Discharge Summary [facility] [id number] [place]. [address] NAME: TOMAS DOE : 36 STATUS : DIS IN PAT#: [id number] AGE: 80 ADM/REG DATE : 11/15/16 MR#: [id number] REPORT SERV DATE: 11/23/16 DICTATED BY: HUGO SANCHEZ DATE: 11/22/16 REPORT STATUS : Draft TRANSCRIBED BY: KRIS DATE: 11/22/16 5. Celexa 20 mg p.o. daily. 6. Flomax 0.4 mg p.o. daily. 7. Zocor 20 mg p.o. at bedtime. 8. Proscar 5 mg p.o. at bedtime. 9. Baclofen 10 mg p.o. b.i.d. 10.Vitamin B12, 1000 mcg p.o. daily. 11.Vitamin D 2000 units p.o. daily. 12.Melatonin 15 mg p.o. at bedtime. 13.Meropenem 500 mg IV q.6 hours x4 more days. DISCHARGE PLAN: The patient discharged to [facility] for rehab and to complete his IV antibiotic therapy and he will follow up with his primary care, Ashwin Carver, at conclusion of rehab. DICTATED BY: DANY Ramirez/KRIS Hugo Sanchez APN / [id number] CC: Bhavesh Poe M.D. Ashwin Carver M.D. Marciano Trejo M.D.
--- NOTE | ~2016-11-15 | HP ---
History And Physical [facility] [id number] [facility] [place]. [address] NAME: TOMAS DOE : 36 STATUS : ADM IN [facility]#: [id number] AGE: 80 ADM/REG DATE : 11/15/16 MR#: [id number] REPORT SERV DATE: 11/15/16 DICTATED BY: KEIRA CONNER DATE: 11/15/16 REPORT STATUS : Draft TRANSCRIBED BY: MODL DATE: 11/15/16 DATE OF ADMISSION: 11/15/2016 CHIEF COMPLAINT: Weakness, increased urinary frequency and urgency, status post fall accidental today with left-sided pain. HISTORY OF PRESENT ILLNESS: This is a very pleasant 80-year-old gentleman. He does have an extensive past medical history significant for chronic right inguinal hernia, history of chronic atrial fibrillation, history of hypertension, DVT, Parkinson disease, and multiple prior urinary tract infections. He has a history of BPH with urinary retention for which he has a chronic Camarillo catheter, history of Parkinson disease, history of remote cauda equina syndrome with surgical correction. He did have a right-sided rib fracture somewhere at the beginning of June that developed subsequently. In June, he had right-sided rib fractures while on anticoagulation, developed right-sided pneumothorax that required at that time thoracentesis and after that surgery and chest tube placement eventually, also history of skin cancer, who has been presenting today to [facility] accompanied by his after he had a fall episode controlled but accidental this morning. Since yesterday, the patient became somewhat more weak and unsteady which despite having Parkinson disease, he has not had recent multiple falls. He is using a walker, but got weakened this morning in fact. He was so weak that he fell near his hospital bed on the left side. After that, he developed some severe pain, and as a result, his brought him to [facility] Emergency Room. He has been evaluated and initial x-ray of the bilateral ribs did not show any acute fracture identified, and a CT scan of the abdomen and pelvis has shown that the patient has indeed an acute mildly displaced posterior left 11th and nondisplaced posterior lateral 12th rib fracture, but no evidence of bleeding, no pneumothorax. There is no evidence of intramuscular or retroperitoneal or intraperitoneal bleed. He also has been found to have severe urinary tract infection with his chronic Camarillo catheter, and as a result, hospitalist Service has been asked for admission, further evaluation and treatment. He did not have any chest pain or increasing shortness of breath. No PND or orthopnea. No abdominal pain. No cough. No sputum production. No fever. No chills. No night sweats. No hematemesis or melena. No hematochezia. No other complaints. The patient has been admitted to Hospitalist Service for further evaluation and treatment. PAST MEDICAL HISTORY: Chronic atrial fibrillation, he is on Eliquis at home rate control, hypertension, hyperlipidemia, history of DVT, history of Parkinson disease, BPH with urinary retention with chronic Camarillo catheter, prior history of urinary tract infection, prior history of pleural effusion secondary to rib fracture on the right side requiring chest tube, history of pneumonia, and history of chronic right inguinal hernia. PAST SURGICAL HISTORY: Include right total knee replacement, back surgery, umbilical hernia repair, and skin cancer resection. ALLERGIES: HE IS ALLERGIC TO MORPHINE AND PRADAXA. MEDICATIONS: Listed as his home medications include Eliquis, baclofen, Stalevo, vitamin D, Celexa, vitamin B12, Proscar, Imdur, melatonin, Remeron, Protonix, Requip, Zocor, Flomax, History And Physical [address] [address] NAME: TOMAS DOE : 37 STATUS : ADM IN [facility]#: [id number] AGE: 80 ADM/REG DATE : 11/15/16 MR#: [id number] REPORT SERV DATE: 11/15/16 DICTATED BY: KEIRA CONNER DATE: 11/15/16 REPORT STATUS : Draft TRANSCRIBED BY: MODL DATE: 11/15/16 and tetrahydrozoline ophthalmic solution. FAMILY HISTORY: Significant for heart disease. REVIEW OF SYSTEMS: A 14-point review of systems has been obtained and pertinent positives have been listed into the history of present illness. Otherwise, negative except those underlying above. PHYSICAL EXAMINATION: VITAL SIGNS: Currently, the patient is afebrile. Blood pressure 122/83, heart rate 68, respiratory rate 16, and saturating 96% on room air. GENERAL: He is a very pleasant, chronically ill-appearing gentleman, in no acute distress. He is alert and oriented x3. He is nonfocal. He follows all his commands appropriately. HEENT: Shows pupils are equal, round, and reactive to light. Extraocular movements intact. NECK: No JVD. No lymphadenopathy. No thyromegaly appreciated. No carotid bruits. CHEST: Eval shows bilateral air entry. Clear anteroposterior. Decreased breath sounds bibasilarly. No rales, rhonchi, or crackles appreciated. CARDIOVASCULAR: Irregularly irregular. S1, S2 positive. No S3, no S4. No murmurs, rubs, or gallops appreciated. ABDOMEN: Soft, positive bowel sounds. Nontender. No guarding. No rebound. EXTREMITIES: No clubbing, cyanosis, or edema. NEUROLOGIC: He is alert and oriented x3. He follows all his commands appropriately. Generalized weak. Speech is normal. Gait has not been assessed. LABORATORY DATA: Labs from today would include sodium 141, potassium 4, chloride 108, CO2 of 27, BUN 20, creatinine 0.80, glucose is 88, calcium is 9.3, magnesium 2.2. His troponin is less than 0.02. His lactate is 0.8. White count 6.8, hemoglobin 12.5, hematocrit 37.6, and platelets 143. His INR is 1.2. His UA has been positive for leukocyte esterase, white cells, few bacteria, many white cells. Blood cultures currently are pending. Urine cultures are pending as well. Preliminarily, there is bilateral chest x-ray showing healed right rib fractures, but no other fracture that could be identified. CT of the abdomen and pelvis performed in the emergency room preliminary has shown an acute mildly displaced posterior left 11th and nondisplaced 12th rib fractures. No intramuscular or retroperitoneal or intraperitoneal hemorrhage. No pneumothorax. There is white large inguinal hernia that contains loops of nonobstructive distal small-bowel, moderate fecal burden, no obstruction, prostate hypertrophy, and status post anterior posterior fusion in the lumbosacral area. ASSESSMENT AND PLAN: This is a very pleasant 80-year-old gentleman with: 1. Complicated urinary tract infection in a patient with a chronic Camarillo catheter. 2. Status post fall with left-sided 11th and 12th rib fractures. 3. Chronic atrial fibrillation, on rate control, on anticoagulation. 4. Parkinson disease. 5. Benign prostatic hypertrophy with bladder outlet obstruction with chronic Camarillo. History And Physical [address] [place]. [address] NAME: TOMAS DOE : 36 STATUS : ADM IN PAT#: [id number] AGE: 80 ADM/REG DATE : 11/15/16 MR#: [id number] REPORT SERV DATE: 11/15/16 DICTATED BY: KEIRA CONNER DATE: 11/15/16 REPORT STATUS : Draft TRANSCRIBED BY: MODJanell DATE: 11/15/16 6. Hyperlipidemia. 7. Chronic right inguinal hernia. 8. History of deep venous thrombosis. PLAN: 1. The patient is going to be admitted to Hospitalist Service. We are going to place him on Zosyn. We are going to change the Camarillo. Give IV fluids. Strict I's and O's. Strict daily weights. Follow up the cultures. Check a procalcitonin level. 2. Weakness with accidental fall and left 11th and 12th rib fractures. We are going to provide pain control, incentive spirometer, PT and OT eval and treat, and check CT scan of the chest in the morning. 3. Chronic atrial fibrillation, rate controlled. We will continue his Eliquis. The patient has until recently been on beta erlinda, but that has been discontinued since blood pressure has been borderline by his real estate director, Dr. Trejo. 4. History of Parkinson disease. We will continue his home medications. 5. BPH with bladder outlet obstruction. Change the Camarillo. Continue his home medications. We are going to get PT and OT eval and treat and provide reasonable pain, nausea control, GI and DVT prophylaxis with SCDs. I have discussed extensively with the patient as well as the patient's , the patient medical condition as well as our therapeutical goals. I have also discussed with the patient, the patient's wishes in case his condition deteriorates and he does not want any aggressive measures such as intubation, mechanical ventilation, chest compression, defibrillation, cardioversion, nor he wants medications to treat life-threatening arrhythmia or hemodynamic deterioration according to the patient's prior wishes well stated. We are going to honor the patient and family wishes and make the patient do not resuscitate. Further workup and recommendation pending above. It is worthwhile to note that the patient is going to be followed by Hospitalist Service. LAINA/KRIS Keira Conner M.D. / [id number] CC: Dapnhe Duran M.D.
--- NOTE | ~2016-11-15 | CN ---
Consultation Report [facility] [address] [place]. [address] NAME: TOMAS VASQUEZ : 37 STATUS : ADM IN [facility]#: [id number] AGE: 80 ADM/REG DATE : 11/15/16 MR#: [id number] REPORT SERV DATE: 11/20/16 DICTATED BY: CORNELIUS SOLIZ DATE: 11/20/16 REPORT STATUS : Draft TRANSCRIBED BY: MODL DATE: 11/20/16 DATE OF CONSULTATION: REASON FOR CONSULTATION: Mr. Tomas Vasquez is a 80-year-old male, who is referred for a question about anticoagulation and control of atrial fibrillation. CVD PHYSICIAN: Dr. Trejo. HISTORY OF PRESENT ILLNESS: Mr. Tomas Vasquez is a 80-year-old male, who entered with a UTI and is undergoing treatment. During this time, he was noted to have pauses at night with his atrial fibrillation. No syncope or presyncope was noted during the day. There was also some question about anticoagulation since he has had rib fractures bilaterally. He has also had a complication of hemothorax. REVIEW OF SYSTEMS: Difficult to obtain, but from the family, he has Parkinson, which makes him fairly immobile. He does not have syncope or presyncope. He is unsteady on his feet. PAST MEDICAL HISTORY: 1. DNR status. 2. History of DVT. 3. History of parkinsonism. 4. UTI, currently under treatment. 5. Atrial fibrillation, chronic, on rate control. 6. Anticoagulation, chronic, for DVT and atrial fibrillation. 7. Hyperlipidemia, continued on simvastatin. SOCIAL HISTORY: His family is in attendance, and he is very well cared for. He does not drink or smoke. FAMILY HISTORY: Noncontributory. PHYSICAL EXAMINATION: VITAL SIGNS: Blood pressure is 105/65, pulse is in the 60s. GENERAL: He is afebrile, sitting in a chair at this time. He is cooperative, although he has difficulty understanding conversation. LUNGS: Respirations are normal. Symmetrical expansion. Precordium is quiet. HEART: S1 and S2 are normal. ABDOMEN: Active bowel sounds are present. EXTREMITIES: No edema is noted. NEUROLOGIC: Significant tremors seen. LABORATORY EVALUATION: Telemetry shows atrial fibrillation with controlled ventricular response with pauses noted, up to 2-3 seconds. Consultation Report [facility] [address] [place]. [address] NAME: TOMAS VASQUEZ : 37 STATUS : ADM IN PAT#: [id number] AGE: 80 ADM/REG DATE : 11/15/16 MR#: [id number] REPORT SERV DATE: 11/20/16 DICTATED BY: CORNELIUS SOLIZ DATE: 11/20/16 REPORT STATUS : Draft TRANSCRIBED BY: MODL DATE: 11/20/16 ASSESSMENT: 1. Anticoagulation. At this time, I had a long discussion with the family concerning the risk of continuing anticoagulation with trauma versus risks of no anticoagulation with history of deep vein thrombosis and atrial fibrillation. They agree that at this time continuing anticoagulation makes most sense. It clearly, however, represents a risk that they understand and accept. 2. Atrial fibrillation with pauses present. The pauses are currently asymptomatic. At this time, I do not feel a pacemaker is indicated. Beta-erlinda has been discontinued. BONITA/KRIS Cornelius Soliz M.D. / [id number] CC: Daphne Greco M.D.
--- NOTE | ~2016-11-15 | IDS ---
Interim Discharge Summary [facility] [address] [place]. [address] NAME: TOMAS DOE : 37 STATUS : ADM IN [facility]#: [id number] AGE: 80 ADM/REG DATE : 11/15/16 MR#: [id number] REPORT SERV DATE: 11/18/16 DICTATED BY: PRINCE MORTON DATE: 11/18/16 REPORT STATUS : Draft TRANSCRIBED BY: MODL DATE: 11/18/16 ADMISSION DATE: 11/15/2016 DISCHARGE DATE: DISCHARGE DIAGNOSES: 1. Severe catheter associated urinary tract infection with Enterobacter cloacae. 2. Chronic bladder voiding dysfunction. 3. Acute left rib fractures due to fall. 4. Severe Parkinson disease. 5. Chronic atrial fibrillation. 6. Intermittent metabolic encephalopathy. 7. Previous right rib fractures in June 2016, complicated by hematoma, requiring a right chest decortication. 8. Hypertension. 9. Chronic thrombocytopenia. 10.Chronic anemia. 11.Right inguinal hernia, currently asymptomatic. This gentleman had hospitalizations in June of this year and ended up having to have surgical decortication of right chest after rib fracture with hemothorax. He has been in and out of the hospital in rehabs since then. He presented to our emergency room from home. He has been there under care with the . He has a special walker and home physical therapy. Two days prior to this current admission, he suddenly was much weaker, could not get into a car like he normally could, and once when she was walking in, even with his gait belt on, he started to fall, hit the left side of his chest on a foot board, he had left chest pain that was severe, came to the emergency room for this current admission and CT scan of the abdomen and pelvis revealed acute mildly displaced fracture left 11th and nondisplaced posterior lateral 12th rib, no evidence of retroperitoneal or intraperitoneal hemorrhage. He has a large right inguinal hernia with loops of bowel, but not obstructing the small bowel. Moderate fecal burden, prostatic hypertrophy, cardiomegaly with stents. He was admitted to the hospital by our Medical team. He was given IV fluids and placed on antibiotic Zosyn. His [place] catheter was more than four weeks old. It was taken out and a new one was placed. His Zosyn was converted over to cefepime. Cultures of blood have had no growth, but urine has grown out Enterobacter cloacae and now a second organism Pseudomonas aeruginosa has grown and it is resistant to cefepime. So, we are going to switch over to Merrem. He has had multiple attempts at voiding trial with Dr. Montero and at rehabs and has failed them so far, but his really wanted him to have another attempt at a voiding trial, and so when his newly placed [place] catheter here was leaking badly around it on 11/17/2016 and 11/18/2016, he took it out and we have not replaced it yet so far. Bladder scan last night was 14 mL. He has been up to the bedside commode several times a day and even into the restroom and has voided urine spontaneously. However, he is at significant risk, so we will Interim Discharge Summary [place] [address] [place] [address] NAME: TOMAS DOE : 37 STATUS : ADM IN [facility]#: [id number] AGE: 80 ADM/REG DATE : 11/15/16 MR#: [id number] REPORT SERV DATE: 11/18/16 DICTATED BY: PRINCE MORTON DATE: 11/18/16 REPORT STATUS : Draft TRANSCRIBED BY: KRIS DATE: 11/18/16 continue to do postvoid bladder scan. For his pain, we are trying to use Motrin, even though it is not ideal to use an anti- inflammatory, because with narcotics and tramadol, the patient tends to get confused and hallucinate. He has been very good about minimizing the amount of opiates that he is using and using just the ibuprofen so far. He has chronic atrial fibrillation for which he is on Eliquis. There has been no sign of obvious bleeding so far and his hemoglobin is stable though he has a mild chronic anemia and he has chronic thrombocytopenia as well. His is hoping that as he gets stronger from treatment of his urinary infection that he will be able to mobilize better and go home with her again as he was doing prior to this current admission. JOSE ANGEL/KRIS Prince Morton M.D. / [id number] CC: Prince Morton M.D. Ashwin Carver M.D.
[2016-11-15 14:59] LABS: BASOPHILS 0.1 %; BASOPHILS ABSOLUTE 0.01 10/3/uL (0.0-0.16); EOSINOPHILS 0.6 %; EOSINOPHILS ABSOLUTE 0.04 10/3/uL (0.0-0.53); ER CBC TAT 0 Hrs 03 Mins; HEMATOCRIT 37.6 % (40.0-51.0); HEMOGLOBIN 12.5 g/dL (13.6-17.8); IMMATURE GRANULOCYTES 0.1 %; IMMATURE GRANULOCYTES ABSOLUTE 0.01 10/3/uL (0.0-0.11); LYMPHOCYTES 20.4 %; LYMPHOCYTES ABSOLUTE 1.39 10/3/uL (0.67-4.30); MANUAL DIFF NO %; MEAN CORPUS HGB CONC 33.2 g/dL (32.0-36.0); MEAN CORPUSCULAR HEMOGLOB 29.9 pg (26.0-34.0); MEAN PLATELET VOLUME 10.2 fL (9.2-13.0); MONOCYTES 7.9 %; MONOCYTES ABSOLUTE 0.54 10/3/uL (0.21-1.20); NEUTROPHILS 70.9 %; NEUTROPHILS ABSOLUTE 4.81 10/3/uL (2.02-8.40); PLATELET COUNT 143 10/3/uL (150-400); RBC DISTRIBUTION WIDTH 14.6 % (12.0-16.0); RED CELL COUNT 4.18 10/6/uL (4.7-6.1); WHITE BLOOD CELLS 6.8 10/3/uL (4.5-10.5)
[2016-11-15 15:06] LABS: INTERNATIONAL NORMAL RATI 1.2 UNITS (-); PARTIAL THROMBO TIME 31.2 SEC (22.5-37.2)
[2016-11-15 15:08] LABS: PROTIME (NOT ORD) 15.1 SEC (12.0-14.5)
[2016-11-15 15:12] LABS: ASCORBIC ACID (UR NOT ORDER) 40 (NEG); BILIRUBIN, URINE NEGATIVE (NEG); ER URINALYSIS TAT 0 Hrs 14 Mins; KETONE, URINE TRACE MG/DL (NEG); LEUKOCYTE ESTERASE(NOT OR LARGE (NEG); NITRITE (URINE) NEG (NEG); WBC (NOT ORDERED) (RFLEX) > 182 (0-5)
[2016-11-15 15:20] LABS: BUN (BLOOD UREA NITROGEN) 20 MG/DL (6-23); CALCIUM, SERUM 9.3 MG/DL (8.5-10.4); CHEST PAIN PROFILE TAT 0 Hrs 24 Mins; CHLORIDE, SERUM 108 MMOL/L (96-112); CO2 (CARBON DIOXIDE) 27 MMOL/L (24-34); GFR AFRICAN AMERICAN 98 ML/MIN (>=60); GFR NON AFRICAN AMERICAN 85 ML/MIN (>=60); GLUCOSE, SERUM 88 MG/DL (60-99); SODIUM, SERUM 141 MMOL/L (135-148); TROPONIN I <0.02 NG/ML (<0.05)
[2016-11-15] MEDS ORDERED: STALEVO 200 PO (18:41)
[2016-11-15] MEDS ORDERED: REQUIP3 PO (18:42)
[2016-11-15] MEDS ORDERED: ELIQUIS 5 MG TAB5 MG PO (18:42)
[2016-11-15] MEDS ORDERED: PROTONIX PO (18:42)
[2016-11-15] MEDS ORDERED: CELEXA20 PO (18:43)
[2016-11-15] MEDS ORDERED: ZOCOR20 PO (18:44)
[2016-11-15] MEDS ORDERED: PROSCAR5 PO (18:44)
[2016-11-15] MEDS ORDERED: FLOMAX4 PO (18:44)
[2016-11-15] MEDS ORDERED: LIOR10 PO (18:44)
[2016-11-15] MEDS ORDERED: CYANO1000T PO (18:45)
[2016-11-15] MEDS ORDERED: MELATONIN5 M1 PO (18:46)
[2016-11-15] MEDS ORDERED: VITAMIN D2000 UNIT PO (18:46)
[2016-11-15] MEDS ORDERED: REM15 PO (18:47)
[2016-11-15] MEDS ORDERED: TETRAHYDROZOLINE OPH (18:49)
[2016-11-15] MEDS ORDERED: MOTRIN IB200 MG PO (18:50)
[2016-11-15 21:00] LABS: PROCALCITONIN < 0.05 ng/mL (<0.5)
[2016-11-15 22:24] LABS: ALBUMIN 3.6 G/DL (3.5-5.0); ALKALINE PHOSPHATASE 82 U/L (45-117); DIRECT BILIRUBIN 0.2 MG/DL (0.0-0.4); FREE T4 0.83 NG/DL (0.76-1.46); PHOSPHORUS, SERUM 2.6 MG/DL (2.5-4.5); SGPT(ALT) 18 U/L (5-65)
[2016-11-15 22:25] LABS: INDIRECT BILIRUBIN(NOT ORDER) 0.3 MG/DL (0.1-0.9); SGOT(AST) 20 U/L (5-40); TOTAL BILIRUBIN 0.5 MG/DL (0-1.2)
[2016-11-16 05:44] LABS: BASOPHILS 0.2 %; BASOPHILS ABSOLUTE 0.01 10/3/uL (0.0-0.16); EOSINOPHILS 1.6 %; EOSINOPHILS ABSOLUTE 0.08 10/3/uL (0.0-0.53); HEMOGLOBIN 11.6 g/dL (13.6-17.8); IMMATURE GRANULOCYTES 0.2 %; IMMATURE GRANULOCYTES ABSOLUTE 0.01 10/3/uL (0.0-0.11); LYMPHOCYTES 22.7 %; LYMPHOCYTES ABSOLUTE 1.16 10/3/uL (0.67-4.30); MEAN CORPUS HGB CONC 33.1 g/dL (32.0-36.0); MEAN CORPUSCULAR HEMOGLOB 29.9 pg (26.0-34.0); MEAN CORPUSCULAR VOLUME 90.2 fL (80-100); MEAN PLATELET VOLUME 10.4 fL (9.2-13.0); MONOCYTES 8.8 %; MONOCYTES ABSOLUTE 0.45 10/3/uL (0.21-1.20); NEUTROPHILS 66.5 %; PLATELET COUNT 136 10/3/uL (150-400); RBC DISTRIBUTION WIDTH 14.7 % (12.0-16.0); RED CELL COUNT 3.88 10/6/uL (4.7-6.1); WHITE BLOOD CELLS 5.1 10/3/uL (4.5-10.5)
[2016-11-16 05:47] LABS: MANUAL DIFF NO %
[2016-11-16 05:53] LABS: ALBUMIN 3.1 G/DL (3.5-5.0); ALKALINE PHOSPHATASE 79 U/L (45-117); BUN (BLOOD UREA NITROGEN) 19 MG/DL (6-23); CALCIUM, SERUM 8.7 MG/DL (8.5-10.4); CHLORIDE, SERUM 107 MMOL/L (96-112); CO2 (CARBON DIOXIDE) 27 MMOL/L (24-34); CREATININE 0.88 MG/DL (0.70-1.30); GFR AFRICAN AMERICAN 95 ML/MIN (>=60); GFR NON AFRICAN AMERICAN 82 ML/MIN (>=60); GLUCOSE, SERUM 97 MG/DL (60-99); POTASSIUM, SERUM 3.7 MMOL/L (3.5-5.3); SGOT(AST) 12 U/L (5-40); SGPT(ALT) 8 U/L (5-65); SODIUM, SERUM 139 MMOL/L (135-148); TOTAL BILIRUBIN 0.5 MG/DL (0-1.2); TOTAL PROTEIN 6.2 G/DL (6.0-8.5)
[2016-11-16 05:54] LABS: GLOBULIN 3.1 G/DL (2.5-4.1)
[2016-11-17 06:58] LABS: BASOPHILS 0.2 %; BASOPHILS ABSOLUTE 0.01 10/3/uL (0.0-0.16); EOSINOPHILS 1.7 %; EOSINOPHILS ABSOLUTE 0.09 10/3/uL (0.0-0.53); HEMATOCRIT 35.9 % (40.0-51.0); HEMOGLOBIN 12.1 g/dL (13.6-17.8); LYMPHOCYTES 23.7 %; LYMPHOCYTES ABSOLUTE 1.23 10/3/uL (0.67-4.30); MANUAL DIFF NO %; MEAN CORPUS HGB CONC 33.7 g/dL (32.0-36.0); MEAN CORPUSCULAR HEMOGLOB 30.1 pg (26.0-34.0); MEAN CORPUSCULAR VOLUME 89.3 fL (80-100); MEAN PLATELET VOLUME 10.4 fL (9.2-13.0); MONOCYTES ABSOLUTE 0.31 10/3/uL (0.21-1.20); NEUTROPHILS 68.4 %; NEUTROPHILS ABSOLUTE 3.55 10/3/uL (2.02-8.40); PLATELET COUNT 137 10/3/uL (150-400); RBC DISTRIBUTION WIDTH 14.6 % (12.0-16.0); RED CELL COUNT 4.02 10/6/uL (4.7-6.1); WHITE BLOOD CELLS 5.2 10/3/uL (4.5-10.5)
[2016-11-17 07:04] LABS: BUN (BLOOD UREA NITROGEN) 15 MG/DL (6-23); CALCIUM, SERUM 9.1 MG/DL (8.5-10.4); CHLORIDE, SERUM 107 MMOL/L (96-112); CO2 (CARBON DIOXIDE) 28 MMOL/L (24-34); CREATININE 0.79 MG/DL (0.70-1.30); GFR AFRICAN AMERICAN 99 ML/MIN (>=60); GFR NON AFRICAN AMERICAN 85 ML/MIN (>=60); GLUCOSE, SERUM 103 MG/DL (60-99); POTASSIUM, SERUM 3.8 MMOL/L (3.5-5.3); SODIUM, SERUM 140 MMOL/L (135-148)
[2016-11-18 05:56] LABS: BASOPHILS 0.2 %; BASOPHILS ABSOLUTE 0.01 10/3/uL (0.0-0.16); EOSINOPHILS 2.3 %; EOSINOPHILS ABSOLUTE 0.12 10/3/uL (0.0-0.53); HEMATOCRIT 36.3 % (40.0-51.0); HEMOGLOBIN 12.2 g/dL (13.6-17.8); LYMPHOCYTES 28.2 %; LYMPHOCYTES ABSOLUTE 1.46 10/3/uL (0.67-4.30); MEAN CORPUS HGB CONC 33.6 g/dL (32.0-36.0); MEAN CORPUSCULAR HEMOGLOB 30.1 pg (26.0-34.0); MEAN CORPUSCULAR VOLUME 89.6 fL (80-100); MEAN PLATELET VOLUME 9.7 fL (9.2-13.0); MONOCYTES 8.9 %; MONOCYTES ABSOLUTE 0.46 10/3/uL (0.21-1.20); NEUTROPHILS 60.4 %; NEUTROPHILS ABSOLUTE 3.13 10/3/uL (2.02-8.40); PLATELET COUNT 142 10/3/uL (150-400); RBC DISTRIBUTION WIDTH 14.5 % (12.0-16.0); RED CELL COUNT 4.05 10/6/uL (4.7-6.1); WHITE BLOOD CELLS 5.2 10/3/uL (4.5-10.5)
[2016-11-18 05:58] LABS: MANUAL DIFF NO %
[2016-11-18 06:17] LABS: BUN (BLOOD UREA NITROGEN) 16 MG/DL (6-23); CALCIUM, SERUM 9.1 MG/DL (8.5-10.4); CHLORIDE, SERUM 105 MMOL/L (96-112); CO2 (CARBON DIOXIDE) 27 MMOL/L (24-34); CREATININE 0.79 MG/DL (0.70-1.30); GFR AFRICAN AMERICAN 99 ML/MIN (>=60); GFR NON AFRICAN AMERICAN 85 ML/MIN (>=60); GLUCOSE, SERUM 109 MG/DL (60-99); POTASSIUM, SERUM 3.9 MMOL/L (3.5-5.3); SODIUM, SERUM 137 MMOL/L (135-148)
[2016-11-19 05:33] LABS: BASOPHILS 0 %; EOSINOPHILS ABSOLUTE 0.18 10/3/uL (0.0-0.53); HEMATOCRIT 35.5 % (40.0-51.0); HEMOGLOBIN 12.2 g/dL (13.6-17.8); IMMATURE GRANULOCYTES 0.2 %; IMMATURE GRANULOCYTES ABSOLUTE 0.01 10/3/uL (0.0-0.11); LYMPHOCYTES 34.5 %; LYMPHOCYTES ABSOLUTE 1.56 10/3/uL (0.67-4.30); MEAN CORPUS HGB CONC 34.4 g/dL (32.0-36.0); MEAN CORPUSCULAR HEMOGLOB 30.7 pg (26.0-34.0); MEAN CORPUSCULAR VOLUME 89.2 fL (80-100); MONOCYTES 6.9 %; MONOCYTES ABSOLUTE 0.31 10/3/uL (0.21-1.20); NEUTROPHILS 54.4 %; NEUTROPHILS ABSOLUTE 2.46 10/3/uL (2.02-8.40); PLATELET COUNT 149 10/3/uL (150-400); RBC DISTRIBUTION WIDTH 14.4 % (12.0-16.0); RED CELL COUNT 3.98 10/6/uL (4.7-6.1); WHITE BLOOD CELLS 4.5 10/3/uL (4.5-10.5)
[2016-11-19 05:44] LABS: MANUAL DIFF NO %
[2016-11-19 05:52] LABS: BUN (BLOOD UREA NITROGEN) 19 MG/DL (6-23); CALCIUM, SERUM 8.9 MG/DL (8.5-10.4); CHLORIDE, SERUM 105 MMOL/L (96-112); CO2 (CARBON DIOXIDE) 26 MMOL/L (24-34); CREATININE 0.73 MG/DL (0.70-1.30); GFR AFRICAN AMERICAN 102 ML/MIN (>=60); GFR NON AFRICAN AMERICAN 88 ML/MIN (>=60); GLUCOSE, SERUM 98 MG/DL (60-99); POTASSIUM, SERUM 3.8 MMOL/L (3.5-5.3); SODIUM, SERUM 138 MMOL/L (135-148)
[2016-11-20 15:43] LABS: BUN (BLOOD UREA NITROGEN) 18 MG/DL (6-23); CALCIUM, SERUM 9.2 MG/DL (8.5-10.4); CHLORIDE, SERUM 106 MMOL/L (96-112); CO2 (CARBON DIOXIDE) 30 MMOL/L (24-34); CREATININE 0.75 MG/DL (0.70-1.30); GFR AFRICAN AMERICAN 101 ML/MIN (>=60); GFR NON AFRICAN AMERICAN 87 ML/MIN (>=60); GLUCOSE, SERUM 93 MG/DL (60-99); POTASSIUM, SERUM 4.1 MMOL/L (3.5-5.3); SODIUM, SERUM 139 MMOL/L (135-148)
[2017-01-11] MEDS ORDERED: STALEVO 200 PO (17:16)
[2017-01-11] MEDS ORDERED: ELIQUIS 5 MG TAB5 MG PO (17:16)
[2017-01-11] MEDS ORDERED: LIOR10 PO (17:17)
[2017-01-11] MEDS ORDERED: PROSCAR5 PO (17:17)
[2017-01-11] MEDS ORDERED: AUG875 PO (17:18)
[2017-01-11] MEDS ORDERED: CELEXA20 PO (17:19)
[2017-01-11] MEDS ORDERED: ZOCOR20 PO (17:19)
[2017-01-11] MEDS ORDERED: REM15 PO (17:20)
[2017-01-11] MEDS ORDERED: REQUIP4 MG PO (17:21)
[2017-01-11] MEDS ORDERED: MIRALAX POWDER1 PKT PO (17:21)
[2017-01-11] MEDS ORDERED: PROAIR HFA INH (17:21)
[2017-01-11] MEDS ORDERED: MELATONIN5 M1 PO (17:22)
[2017-01-11] MEDS ORDERED: VITAMIN B-12 PO (17:23)
[2017-01-11] MEDS ORDERED: VITAMIN D2000 UNIT PO (17:23)
[2017-01-11] MEDS ORDERED: ADVIL PO (17:24)
[2017-01-11] MEDS ORDERED: T PO (17:24)
[2017-01-11] MEDS ORDERED: SYSTANE ULTR OPH (17:25)
== END 2016-11-21 17:10 | DRG 698 ==
LOC: ER 11:42 → 6NO 20:17
PROVIDERS: Emergency Medicine; Hospitalist; Internal Medicine; Nurse Practitioner Gerontology
PROC: 02HV33Z Insertion of Infusion Device into Superior Vena Cava, Percutaneous Approach (ICD-10-PCS; principal; 2016-11-20)
PROC: 4A02X4A Measurement of Cardiac Electrical Activity, Guidance, External Approach (ICD-10-PCS; 2016-11-20)
DX: T83.511A Infection and inflammatory reaction due to indwelling urethral catheter, initial encounter (principal); G92 Toxic encephalopathy; G20 Parkinson's disease; S22.42XA Multiple fractures of ribs, left side, initial encounter for closed fracture; B96.5 Pseudomonas (aeruginosa) (mallei) (pseudomallei) as the cause of diseases classified elsewhere; N39.0 Urinary tract infection, site not specified; B96.89 Other specified bacterial agents as the cause of diseases classified elsewhere; N40.1 Benign prostatic hyperplasia with lower urinary tract symptoms; R33.8 Other retention of urine; W19.XXXD Unspecified fall, subsequent encounter; Z91.81 History of falling; K40.90 Unilateral inguinal hernia, without obstruction or gangrene, not specified as recurrent; Z79.02 Long term (current) use of antithrombotics/antiplatelets; Z85.828 Personal history of other malignant neoplasm of skin; Z86.718 Personal history of other venous thrombosis and embolism; Z96.651 Presence of right artificial knee joint; Z66 Do not resuscitate; Z87.440 Personal history of urinary (tract) infections; Z87.01 Personal history of pneumonia (recurrent); T40.605A Adverse effect of unspecified narcotics, initial encounter
CPT/HCPCS: 36569; 71111; 71250; 74176; 80048; 80053; 80076; 81001; 83036; 83605; 83615; 83735; 84100; 84145; 84439; 84443; 84484; 85025; 85610; 85730; 87040; 87077; 87086; 87186; 93005; 96374; 97112-GO; 97163-GP; 97166-GO; 97530-GO; 97530-GP; 97535-GO; 99285; A9270-GY; C1751; G8978-CM-GP; G8979-CL-GP; G8987-CL-GO; G8988-CK-GO; J0692; J1170; J2185; J2543